=== PATIENT | female | born 1945 | race Caucasian/White ===

== ENCOUNTER → 2016-11-13 | Outpatient (CLI) | payer OTHER | LOC: FIMAGING 12:37 | PROVIDERS: ATTEND Family Medicine | DX: N64.59 Other signs and symptoms in breast (principal); N63 Unspecified lump in breast; Z80.3 Family history of malignant neoplasm of breast | CPT/HCPCS: 76641; G0204 ==

== ENCOUNTER → 2017-11-16 | Outpatient (CLI) | payer OTHER | LOC: FIMAGING 11:30 | PROVIDERS: ATTEND Family Medicine | DX: N63.22 Unspecified lump in the left breast, upper inner quadrant (principal) ==

== ENCOUNTER 2018-01-18 11:58 | Observation (INO) | payer OTHER ==
--- NOTE | 2018-01-17 13:16 | GHP ---
DATE OF ADMISSION: 01/18/2018 HISTORY OF PRESENT ILLNESS: The patient is a 72-year-old female with a strong family history of breast cancer who has been newly diagnosed with left ER/AK positive, HER-2 negative, Geronimo grade 2 invasive lobular carcinoma. She is status post needle localization lumpectomy and sentinel node biopsy on the left side. She subsequently underwent re-excision for positive margins on 2017. Unfortunately, her pathology report revealed final inferior margin positive for invasive carcinoma. All margins are negative for DCIS. Her left axillary sentinel lymph node biopsy was negative for metastatic carcinoma. We discussed both options of performing an additional re-excision of the lump, or a left mastectomy. The patient wishes to proceed with a left mastectomy. All risks and options have been discussed and patient would like to proceed. PAST MEDICAL HISTORY: Cervical polyp, fibrocystic breast disease, hematuria, insomnia, lobular breast cancer, osteoporosis. PAST SURGICAL HISTORY: Breast biopsy, wisdom teeth removal. MEDICATION LIST: Aspirin 81 mg, calcium 500 mg, Estrace 0.01% vaginal cream, fish oil, multivitamin, vitamin C, vitamin D3. ALLERGIES: No known drug allergies. FAMILY MEDICAL HISTORY: Colon cancer, breast cancer, pancreatic cancer, ovarian cancer, diabetes type 2, TIA, osteoporosis. SOCIAL HISTORY: She is a nonsmoker, occasional alcohol use. No recreational drugs. . REVIEW OF SYSTEMS: A 10-point review of systems was performed and is negative, aside for what is in the HPI. PHYSICAL EXAM: GENERAL: Alert, well dressed, well appearing, in no acute distress. HEENT: Pupils are equal and round. Normocephalic, atraumatic. No gross hearing deficits. Mucous membranes are moist. CARDIAC: Regular rate and rhythm. No clicks, murmurs, or rubs. CHEST: Clear to auscultation bilaterally. No increased work of breathing. ABDOMEN: Soft, nontender, nondistended. LEFT BREAST: There is an incision from her previous surgery in the 12 o'clock position that appears to be CDI. MUSCULOSKELETAL: Moves all extremities equally. NEURO: Grossly intact, alert and oriented x3. PSYCHIATRIC: Normal mood and affect. IMPRESSION/PLAN: This is a patient with known infiltrating lobular carcinoma who is status post left breast lumpectomy and subsequent re-excision. Her final pathology report revealed invasive carcinoma at the final inferior margin. We have given her the option of an additional re-excision, however, she has chosen to proceed with left mastectomy as opposed to re-excision. All risks and options have been discussed. The patient wishes to proceed. /[id number]/MODL MTDD
--- NOTE | 2018-01-18 12:21 | PDHPUP ---
History & Physical Update H&P update statement: This history and physical update is based on an assessment of the patient which was completed after admission or registration (within 24 hours), but prior to the surgery/procedure. H&P update: H&P reviewed & patient examined, no change in patient's condition since H&P completed
[2018-01-18] MEDS ORDERED: LR 1,000 ML IV ONE (12:24)
[2018-01-18] MEDS ORDERED: LIDOCAINE 1% 2 ML INJ ID PRN (12:24)
[2018-01-18] MEDS ORDERED: ceFAZolin 2 GM/DEXTROSE 100 ML IV ONE (12:24)
[2018-01-18] MEDS ORDERED: GLYCOPYRROLATE 0.2 MG/1 ML VIAL ONE ×2 (13:36→14:34)
[2018-01-18] MEDS ORDERED: BUPIVACAINE 0.5% 30 ML SDV ONE (13:43)
[2018-01-18] MEDS ORDERED: THROMBIN (BOVINE) 20,000 UNIT SPRAY TP ONE (13:43)
[2018-01-18] MEDS ORDERED: ONDANSETRON 4 MG/2 ML VIAL ONE (14:19)
[2018-01-18] MEDS ORDERED: ROCURONIUM 100 MG/10 ML VIAL ONE (14:19)
[2018-01-18] MEDS ORDERED: LIDOCAINE 2% 100 MG/5 ML SYR ONE (14:19)
[2018-01-18] MEDS ORDERED: PHENYLEPHRINE HCL 100 MCG/ML SYR ONE (14:19)
[2018-01-18] MEDS ORDERED: MIDAZOLAM 2 MG/2 ML VIAL ONE (14:19)
[2018-01-18] MEDS ORDERED: ROCURONIUM 50 MG/5 ML VIAL ONE (14:19)
[2018-01-18] MEDS ORDERED: DEXAMETHASONE 4 MG/ML VIAL ONE (14:19)
[2018-01-18] MEDS ORDERED: fentaNYL 250 MCG/5 ML INJ ONE (14:20)
[2018-01-18] MEDS ORDERED: PROPOFOL 200 MG/20 ML VIAL ONE ×2 (14:20→15:14)
--- NOTE | 2018-01-18 14:51 | PDANEPAE ---
ANE History of Present Illness Left breast mass, mastectomy ANE Past Medical History - Cardiovascular History Hx Hypertension: No Hx Arrhythmias: No Hx Chest Pain: No Hx Coronary Artery / Peripheral Vascular Disease: No Hx CHF / Valvular Disease: No Hx Palpitations: No Cardiovascular History Comment: LBBB - Pulmonary History Hx COPD: No Hx Asthma/Reactive Airway Disease: No Hx Recent Upper Respiratory Infection: No Hx Oxygen in Use at Home: No Hx Sleep Apnea: No Sleep Apnea Screening Result - Last Documented: Negative - Neurologic History Hx Cerebrovascular Accident: No Hx Seizures: No Hx Dementia: No - Endocrine History Hx Diabetes: No - Renal History Hx Renal Disorders: No - Liver History Hx Hepatic Disorders: No - Neurological & Psychiatric Hx Hx Neurological and Psychiatric Disorders: No - Cancer History Hx Cancer: Yes Cancer History Comment: BREAST - Congenital Disorder History Hx Congenital Disorders: No Congenital History Comment: breast cancer - GI History Hx Gastrointestinal Disorders: No - Other Health History Other Health History: none - Chronic Pain History Chronic Pain: No - Surgical History Prior Surgeries: RE-EXCISION LT BREAST MARGING 01/05/18 AT [facility]. LT BREAST LUMPECTOMY 12/23/17. hernia repair ANE Review of Systems Review of Systems: - Exercise capacity METS (RN): 4 METS ANE Patient History - Allergies Allergies/Adverse Reactions: No Allergies [NKDA] Allergy (Verified 12/22/17 15:48) - Home Medications Home Medications: Cholecalciferol (Vitamin D3) DAILY 12/22/17 [Last Taken 01/13/18 08:00] Multivitamins DAILY 12/22/17 [Last Taken 01/13/18 08:00] Red Yeast Rice DAILY 12/22/17 [Last Taken 01/13/18 08:00] - NPO status NPO Since - Liquids (Date): 01/18/18 NPO Since - Liquids (Time): 08:30 NPO Since - Solids (Date): 01/17/18 NPO Since - Solids (Time): 18:30 - Smoking Hx Smoking Status: Never smoked - Family Anes Hx Family Hx Anesthesia Complications: none ANE Labs/Vital Signs - Vital Signs Blood Pressure: 123/75 Heart Rate: 70 Respiratory Rate: 16 O2 Sat (%): 95 Height: 170.18 cm Weight: 59.874 kg ANE Physical Exam - Airway Neck exam: FROM Mallampati Score: Class 2 Mouth exam: normal dental/mouth exam - Pulmonary Pulmonary: no respiratory distress - Cardiovascular Cardiovascular: regular rate and rhythym - ASA Status ASA Status: II
[2018-01-18] MEDS ORDERED: PHENYLEPHRINE HCL 100 MCG/ML SYR IVP PRN (15:25)
[2018-01-18] MEDS ORDERED: NALOXONE HCL 0.4 MG/ML INJ IVP PRN (15:25)
[2018-01-18] MEDS ORDERED: LABETALOL HCL 5 MG/ML 20 ML MDV IVP PRN (15:25)
[2018-01-18] MEDS ORDERED: DEXAMETHASONE 4 MG/ML VIAL IVP PRN (15:25)
[2018-01-18] MEDS ORDERED: HYDROCODONE/APAP 5/325 TAB PO PRN (15:25)
[2018-01-18] MEDS ORDERED: LR 500 ML IV PRN (15:25)
[2018-01-18] MEDS ORDERED: oxyCODONE IR 5 MG TAB PO PRN (15:25)
[2018-01-18] MEDS ORDERED: ALBUTEROL 3 ML DEYVIAL IH PRN (15:25)
[2018-01-18] MEDS ORDERED: PROMETHAZINE HCL 25 MG/ML INJ IVP PRN (15:25)
[2018-01-18] MEDS ORDERED: ONDANSETRON 4 MG/2 ML VIAL IVP PRN ×2 (15:25→15:49)
[2018-01-18] MEDS ORDERED: MEPERIDINE 25 MG/0.5 ML AMP IVP PRN (15:25)
[2018-01-18] MEDS ORDERED: ACETAMINOPHEN 325 MG TAB PO PRN (15:49)
[2018-01-18] MEDS ORDERED: HYDROmorphone HCL 0.5 MG/0.5 ML SYR IVP PRN (15:49)
[2018-01-18] MEDS ORDERED: OXYCODONE/APAP 5/325 TAB PO PRN (15:49)
[2018-01-18] MEDS ORDERED: NS 1,000 ML IV SCH (16:00)
[2018-01-18] MEDS ORDERED: HYDROmorphONE/DILAUDID 2 MG/ML INJ ONE (16:23)
[2018-01-18] MEDS ORDERED: fentaNYL 100 MCG/2 ML INJ ONE (16:23)
[2018-01-18] MEDS: fentaNYL 100 MCG/2 ML INJ IVP PRN ×2 (16:25→16:30)
--- NOTE | 2018-01-18 17:04 | POSTOPPROG ---
Post Op Note Date of Operation: 01/18/18 Surgeon: Surendra Lennon Reinsurance Clerk: MATT Anesthesiologist: SMITH Anesthesia: GET(General Endotracheal) Pre-op Diagnosis: LEFT BREAST CANCER Post-op Diagnosis: SAME Indication: CANCER Procedure: LEFT MASTECTOMY Findings: PATH PENDING Inf/Abcess present in the surg proc area at time of surgery?: No Depth: Deep Incisional (Fascial) EBL: Minimal Complications: 0 Drains: Maxi Pack Specimen(s): LEFT BREAST
[2018-01-18] MEDS: DOCUSATE SODIUM 100 MG CAP PO SCH (20:35)
--- NOTE | 2018-01-19 08:11 | SOAPPROG ---
SOAP Progress Note Assessment/Plan: Assessment/Plan: 72 Y F s/p L mastectomy, POD#1. Doing well. Pain controlled. Labs ok. Path pending. D/c to home c drains. Pt has percocet at home PRN. S: very little pain. ready to go home. O: alert, nad ncat wounds well dressed, drains serosanguinous no wob rrr 01/19/18 08:09 Objective: Vital Signs Temp Pulse Resp BP Pulse Ox 36.6 C 51 L 16 117/53 L 93 01/19/18 04:08 01/19/18 04:08 01/19/18 04:08 01/19/18 04:08 01/19/18 04:08 Laboratory Results 01/19/18 04:26 01/19/18 04:26 01/18/18 01/19/18 01/20/18 05:59 05:59 05:59 Intake Total 2376 Output Total 1560 Balance 816 ICD10 Worksheet Patient Problems: Problems Problem Status Onset Breast cancer Acute - ICD10 Problem Qualifiers (1) Breast cancer Qualifiers: Patient sex: female Laterality: left
[2018-01-19 08:27] VITALS: BP 111/48
[2018-01-19] MEDS: DOCUSATE SODIUM 100 MG CAP PO SCH (09:42)
--- NOTE | 2018-01-19 12:45 | ASDISCHSUM ---
Discharge Information Plan Status:Home with No Needs Medically Cleared to Leave:01/19/2018 Discharge Date:01/19/2018 11:06 AM CM D/C Disposition:Home, Routine, Self-Care ADT D/C Disposition:Home, Routine, Self-Care Projected Discharge Date:01/19/2018 11:06 AM Transportation at D/C:Family Discharge Delay Reason: Follow-Up Date:01/19/2018 11:06 AM Discharge Slot: Final Diagnosis: Placement Information Patient Contact Information Contact Name:DANIELLE Relationship: Address:[address] Work Phone: City:[place] Alternate Phone: [facility]/Zip Code:[place] [address] Email: Financial Information Financial Class:Medicare Primary Plan Desc:MEDICARE OUTPATIENT Primary Plan Number:[id number] Secondary Plan Desc:JAMEY PPO Secondary Plan Number:[id number] Assessment Information [facility] CM Progress Note CM Note CM Note Notes: Chart reviewed. Patient has been medically cleared for dc. Met with patient and family and the deny needs at this time. To f/u with surgeon on Wednesday. Plan: Home independently. Date Signed: 01/19/2018 12:12 PM Electronically Signed By:Adeline Rizvi RN Intervention Information
--- NOTE | 2018-01-19 15:23 | POSTANESTH ---
Post Anesthetic Evaluation Cardiovascular Status: Normal, Stable Respiratory Status: Normal, Stable Level of Consciousness/Mental Status: Alert and Oriented Pain Control: Adequate, Prn Tx Ordered Nausea/Vomiting Control: Adequate, Prn Tx Ordered Complications Possibly Related to Anesthesia: None Noted (Patient discharged prior to being seen. Report gained from Surgery and floor nurse)
[2018-01-20] MEDS ORDERED: ENOXAPARIN 40 MG/0.4 ML SYR SC SCH (09:00)
--- NOTE | 2018-01-23 17:22 | GOP ---
DATE OF OPERATION: 01/18/2018 SURGEON: Surendra Lennon MD BROOMCORN GRADER: ALINE Erickson. ANESTHESIA: By Dr. Morales. PREOPERATIVE DIAGNOSIS: Left breast cancer. POSTOPERATIVE DIAGNOSIS: Left breast cancer. PROCEDURE PERFORMED: Left mastectomy with superficial axillary node dissection. FINDINGS: The patient was found to have a large seroma cavity from her previous biopsy. The cavity went right down the pectoralis muscle requiring removal of a portion of the pectoralis muscle along t he back wall of the cavity. ESTIMATED BLOOD LOSS: Less than 50 cc. DESCRIPTION OF PROCEDURE: Patient taken to the operating room where she received satisfactory genera l endotracheal anesthesia by Dr. Morales. She was prepped and draped in usual sterile fashion with the left arm outstretched on arm board. An elliptical skin incision was made to include the previous bi opsy site and the nipple-areolar complex. Skin flaps were developed to the clavicle to the sternum a nd to the rectus sheath, as well as the latissimus dorsi. The breast tissue was elevated up off the pectoralis muscle at the site of the previous biopsy cavity. A segment of the pectoralis muscle was excised along with the breast tissue for a deep margin. Hemostasis was carefully assured. The disse ction extended up into the base of the axilla and past the area of the axillary node biopsy. It was amputated at that level using hemoclips and/or electrocautery or 3-0 Vicryl ties. The specimen was r emoved and sent to Pathology. Hemostasis was carefully obtained. The two 10-mm flat RACHAEL drains were brought in through separate stab incisions and secured to the skin with silk sutures. The skin flaps were trimmed as necessary and closed using the running 3-0 Vicryl suture for the subcutaneous tissue and a running 3-0 Monoderm Quill suture for the skin. She tolerated the procedure well. She was ta joy to the recovery room in good condition. There were no complications. /[id number]/MODL
== END 2018-01-19 11:06 | disposition home or self-care (01) ==
LOC: F3N 11:58 → F1N 17:12
PROVIDERS: ADMIT Surgery; ATTEND Surgery
DX: C50.912 Malignant neoplasm of unspecified site of left female breast (principal); M81.0 Age-related osteoporosis without current pathological fracture; Z15.01 Genetic susceptibility to malignant neoplasm of breast
CPT/HCPCS: 19302; 88307; 88341; 88342; J0690; J1100; J1170; J2001; J2250; J2270; J2370; J2405; J2704; J3010

== ENCOUNTER → 2018-08-25 | Outpatient (CLI) | payer OTHER | LOC: FIMAGING 14:12 | PROVIDERS: ATTEND Internal Medicine Hematology & Oncology | DX: Z85.3 Personal history of malignant neoplasm of breast (principal); Z90.12 Acquired absence of left breast and nipple ==

== ENCOUNTER → 2018-09-27 | Outpatient (CLI) | payer OTHER | LOC: FIMAGING 17:08 ==